=== PATIENT | male | born 1970 | race Asian ===

== ENCOUNTER 2022-10-11 14:58 | Outpatient (CLI) | payer OTHER | END 2022-10-11 19:01 | disposition home or self-care (01) | LOC: RESP 14:58 | PROVIDERS: ATTEND Specialist | DX: R07.89 Other chest pain (principal) ==

== ENCOUNTER 2022-10-12 09:05 | Outpatient (CLI) | payer OTHER ==
[~2022-10-12] VITALS: Ht 177.8 cm; Wt 141.5 kg
== END 2022-10-12 19:19 | disposition home or self-care (01) ==
LOC: NM 09:05
PROVIDERS: ATTEND Specialist
DX: R07.89 Other chest pain (principal)
CPT/HCPCS: A9500; J2785